=== PATIENT | male | born 1950 | race Caucasian/White ===

== ENCOUNTER 2019-01-06 16:13 | Inpatient (IN) | payer OTHER ==
[~2019-01-06] VITALS: Ht 188 cm; Wt 54.4 kg
[~2019-01-06 16:13] MED LIST: ALBUTEROL2.5 MG/31 INH
[2019-01-06 16:14] VITALS: BP 152/84
[2019-01-06 16:27] LABS: ABSOLUTE NEUTROPHILS 7.7 thou/uL (1.4-8.2); BASOPHILS 0.6 % (0.0-2.0); EOSINOPHILS 0.3 % (0.0-3.0); HEMATOCRIT 37.4 % (42.0-52.0); HEMOGLOBIN 12.3 gm/dL (14.0-18.0); LYMPHOCYTES 9.9 % (24.0-44.0); MCH 31.3 pg (26.0-34.0); MCHC 32.9 g/dL (28.0-37.0); MCV 95.1 fL (80.0-100.0); MONOCYTES 8.5 % (1.0-8.0); PLATELET COUNT 198 thou/uL (150-400); POLYS 80.7 % (36.0-66.0); RBC 3.93 mil/uL (4.50-6.00); RDW 13.6 % (10.5-14.5); WBC 9.5 thou/uL (4.0-11.0)
[2019-01-06 16:34] LABS: CALCIUM 8.4 mg/dL (8.5-10.1); CREATININE 1.1 mg/dL (0.7-1.3); POTASSIUM 4.3 mmol/L (3.5-5.1)
[2019-01-06 16:40] LABS: TOTAL BILIRUBIN 0.7 mg/dL (<0.1-1.0); TOTAL PROTEIN 7.2 g/dL (6.4-8.2)
[2019-01-06 18:04] VITALS: BP 157/65
--- NOTE | 2019-01-06 18:10 | NUR ---
ATTEMPTED TO CALL REPORT NURSE NOT READY
[2019-01-06 18:25] VITALS: BP 148/76
[2019-01-06 18:52] VITALS: BP 175/81
--- NOTE | 2019-01-06 19:43 | NUR ---
REPORT GOTTEN FROM ED AT 1830, PATIENT CAME UP AT 1840. REPORT GIVEN TO NIGHT NURSE JOANNA
[2019-01-07] VITALS (8 sets, daily range): BP systolic 89–149; BP diastolic 58–90
--- NOTE | 2019-01-07 04:05 | NUR ---
ASSUMED CARE OF PATIENT AT 1900. ADMISSION COMPLETED MUCH POSSIBLE. NO ORDERS AT THIS TIME FROM DR BYRNE. DENIES PAIN AT THIS TIME. NPO AFTER MIDNIGHT. WILL CONTINUE TO MONITOR.
--- NOTE | 2019-01-07 07:56 | EKG ---
[place] [address] [address] [facility] [employer] [place] [address] ELECTROCARDIOGRAM REPORT Name: CARLITOS PALMER Room #: 452-P ADM IN M.R.#: [id number] ������������������ Admission: 01/06/19 ������������������ Attend Phys: Cristy Chavis MD Discharge: ������������������ Date of : 46 Report #: [id number] ����������������������������������������������������������������� [id number] THIS REPORT FOR: //name// [facility] ED Test Date: 2019-01-06 Test Time: 17:31:34 Pat Name: CARLITOS PALMER Department: Room: [facility] Gender: M Command And Control Specialist: kf : 1950 Requested By: Minerva Layne Order Number: [id number] MD: Bradford Cordova Measurements Intervals [place] Rate: 87 P: 84 [place]: 200 QRS: 82 QRSD: 115 T: 81 QT: 410 QTc: 494 Interpretive Statements Sinus rhythm LAE, consider biatrial enlargement Compared to ECG 06/01/2014 16:54:53 No significant change was found Electronically Signed On 01-07-2019 7:56:07 CDT by Bradford Cordova [email or web address] ��������������������������������������������� <ELECTRONICALLY SIGNED> ���������������������������������������� By: Bradford Cordova MD, [facility] ��������������������������������������������� 01/07/19 0756 [id number] Bradford Cordova MD, [facility] /EPI
--- NOTE | 2019-01-07 11:29 | HC ---
[facility] [address] [place] [address] CONSULTATION Name: CARLITOS PALMER Room #: 452-P [facility] IN M.R.#: [id number] Admission: 01/06/19 ������������������ Attend Phys: Cristy Chavis MD Discharge: ������������������ Date of : 46 Report #: [id number] THIS REPORT FOR: //name// CC: FAM unknown Cristy Chavis CHIEF COMPLAINT: Right hip femoral neck fracture. HISTORY OF PRESENT ILLNESS: A 68-year-old gentleman who lives at [facility]. He apparently fell yesterday when he was noted upon questioning to have right hip pain. He was determined from x-rays to have a femoral neck fracture, which was displaced. He was subsequently admitted for further management. PAST MEDICAL HISTORY: Significant for renal failure, cellulitis, hypoxemia, malnutrition, venous insufficiency, anemia, hypertension, hyperlipidemia. SOCIAL HISTORY: Negative for tobacco or alcohol use. LABORATORY STUDIES: Note a hemoglobin of 12.3. PHYSICAL EXAMINATION: VITAL SIGNS: Note a temperature of 37.2, pulse is 85, respiratory rate is 18, blood pressure is 152/84. GENERAL: Notes the patient to be alert and awake, in no distress. EXTREMITIES: Examination of the patient's right lower extremity notes it is shortened and externally rotated. He has good capillary refill distally and is neurovascularly intact distally. IMAGING: X-rays of the pelvis and hip note a displaced femoral neck fracture. IMPRESSION: Right hip femoral neck fracture, displaced. PLAN: Would be to proceed with a right hip hemiarthroplasty. The risks, benefits, alternatives, complications were discussed at length. We will proceed in the near future. ��������������������������������������������� <ELECTRONICALLY SIGNED> ���������������������������������������� By: Marcelino Padilla MD ��������������������������������������������� 01/07/19 1129 [id number] 0500 Marcelino Padilla MD /nt
--- NOTE | 2019-01-07 12:05 | NUR ---
Received awake on bed. Pt A+Ox 2-3. On room air. On nothing per orem- informed patient and care team. Pt incontinent of B/B- pt checked frequently and changed as needed. With wound at R elbow- photo taken by previous shift. Vital signs stable. Pt for hip surgery today- consent to be signed since pt is confused, no DPOA and came from facility- OR staff informed and will let doctor know. Fetched by OR staff at 10am.
--- NOTE | 2019-01-08 02:51 | NUR ---
ASSUMED CARE FROM DAY SHIFT PT SITTING UP IN BED EATING EVENING MEAL TOLERATING WELL , PAIN MEDICATION GIVEN AFTER COMPLANINT OF PAIN FORM SURGERY SITE. REINFORCED PLAN OF CARE WITH PATIENT. RESTED WELL THROUGHOUT HOURLY ROUNDS.
[2019-01-08 05:30] VITALS: BP 161/67
[2019-01-08 07:50] VITALS: BP 165/70
--- NOTE | 2019-01-08 09:30 | O ---
[facility] [address] [place] [address] OPERATIVE REPORT Name: ESTELACARLITOS Room #: 452-P [facility] IN M.R.#: [id number] Admission: 01/06/19 ������������������ Attend Phys: Cristy Chavis MD Discharge: ������������������ Date of : 46 Report #: [id number] THIS REPORT FOR: //name// CC: FAM unknown Cristy Chavis DATE OF SERVICE: 01/07/2019 PREOPERATIVE DIAGNOSIS: Right hip femoral neck fracture. POSTOPERATIVE DIAGNOSIS: Right hip femoral neck fracture. PROCEDURE: Right hip hemiarthroplasty. SURGEON: Dr. Marcelino Padilla. ANESTHESIA: General. ESTIMATED BLOOD LOSS: 200 mL. DRAINS: No drains. TOURNIQUETS: No tourniquets. COMPLICATIONS: No complications. DESCRIPTION OF PROCEDURE: The patient was brought to the operating room where he was placed under general anesthesia. Once under adequate general anesthesia, he was placed into a lateral decubitus position on the operative table. The right hip was then prepped and draped in a sterile manner. A 14-cm incision overlying the greater trochanter of the right hip was made. This was dissected sharply down to the tensor fascia, which was incised in line with the incision exposing the posterior aspect of the hip. A posterior approach was then achieved elevating the piriformis along with the joint capsule. Once exposed, any hematoma from the fracture was evacuated and the femoral head was then extracted with a Breaux elevator. This was measured as 53 mm in diameter and the trials confirmed this size to be correct. The femoral neck was cut to length and subsequently reamed and broached to a size 8 cemented stem. Trials were placed and it did appear to be stable; therefore, the wound was irrigated copiously and the femoral canal was prepared for cementation. The cement was placed and the stem was then subsequently placed as well. Once in place, the +0 bipolar head, 53 mm in diameter was then placed. The hip was then reduced. It was very stable. The wound was irrigated copiously and closed with #2 FiberWire in the capsular layer, #5 FiberWire to repair the piriformis back to the fossa. The wound was irrigated once again copiously and closed with #1 Vicryl in the tensor fascial layer and 2-0 Vicryl in the subcutaneous tissues. Gareth were [address] [address] OPERATIVE REPORT Name: CARLITOS PALMER Room #: 452-P [facility] IN ..#: [id number] Admission: 01/06/19 ������������������ Attend Phys: Cristy Chavis MD Discharge: ������������������ Date of : 46 Report #: [id number] used for the skin. The wounds were dressed with Xeroform, 4 x 4s, and a sterile soft compressive dressing was placed. There were no complications from the procedure. The patient tolerated the procedure well and went to the recovery room without incident. ��������������������������������������������� <ELECTRONICALLY SIGNED> ���������������������������������������� By: Marcelino Padilla MD ��������������������������������������������� 01/08/19 0930 1129 1226 Marcelino Padilla MD /amy
--- NOTE | 2019-01-08 10:37 | NUR ---
WOUND CONSULT; ASSESSED THE GROIN AREAS BILATERALLY, IDENTIFIED SKIN CHANGES CONSISTANT WITH A FUNGAL RASH WITH COMMON FUNGAL ODOR. IDENTIFIED A LEFT ELBOW SKIN TEAR WELL. PERIWOUND HAS MILD ERYTHEMA. RECOMMENDATIONS; 1- INTERDRY TO GROIN AREAS BILATERALLY. 2- BOARDER FOAM TO THE LEFT ELBOW. DISCUSSED WITH JUNE
[2019-01-08 11:00] VITALS: BP 116/70
--- NOTE | 2019-01-08 11:09 | NUR ---
Received awake on bed. A+O to self, place and situation. Assisted in ADLs, encouraged to eat and drink. On O2 at 2lpm via nasal cannula- weaning off today. Seen by PT today- tolerated therapy, Pain meds given prior to PT as prescribed. Called [facility] this AM- talked to staff Gilma and asked her re: pt's medications at the facility- as per staff Gilma she mentioned that pt is just on ointment for his rashes there. Pt seen by wound care nurse- orders made for wound care for his groin and R elbow wound. Surgical dressing at R hip C/D/I- no signs of infection noted. Vital signs stable, with mild elevation of BP- rechecked and within his baseline. Pt able to sit out on chair. Falls risk- falls bundle in place. Encouraged pt to talk supplements. With condom catheter in place- pt incontinent. Ice packs in place.
--- NOTE | 2019-01-08 14:08 | NUR ---
PT ADMITTED RELATED TO RT FEMORAL NECK FX S/P HEMIARTHROPLASTY. CM REVIEWED CHART AND SPOKE WITH CARE TEAM. CM MET WITH PT AT BEDSIDE THIS DAY. PT IS A&O X3. CM ROLE INTRODUCED. PT INDICATED [facility] [address] [facility] BUT INDICATED YES TO [facility]. PT INDICATED HE HAD BEEN INDEPDENENT WITH GAIT ELEVATOR CONDUCTOR. CM CALLED AND SPOKE WITH PT'S COUSIN KHLOE AND SHE INDICATED THAT PT RESIDES IN LTC AT [facility] AND HAS FOR THE LAST 3 YEARS. SHE INDICATED PT HAD BEEN INDEPEDNENT WITH GAIT PT. SHE STATED THAT SHE ANTICPATES PT RETURNING BACK TO [facility] ONCE MEDICALLY STABLE. REFERRAL SENT TO [facility] FOR REVIEW FOR POSSIBLE SKILLED UPON DC. CM TO FOLLOW INDICATED WITH DC PLANNING.
--- NOTE | 2019-01-08 14:26 | NUR ---
DISCHARGE PLANNING. PATIENT ANTICIPATED DISCHARGE PLANNED FOR TOMORROW. PATIENT IS AN [facility] CLARE RESIDENT. REFERRAL FAXED TO [facility] FOR POST ACUTE STAY. CALL PLACED TO [facility], SPOKE WITH JIMMY WHO STATES PATIENT WAS ON THEIR SKILLED UNIT PRIOR TO HOSPITAL ADMISSION. JIMMY TRANSFERRED ME TO [facility] FOR PATIENTS POST ACUTE PLACEMENT NEEDS. [facility] TO REVIEW REFERRAL AND DISCUSS PATIENTS PLACEMENT NEEDS WITH HER ADMISSIONS TEAM AND WILL NOTIFY ONCE REFERRAL REVIEW COMPLETE. FOLLOWING TO ASSIST WITH DISCHARGE NEEDS.
[2019-01-08 15:13] VITALS: BP 126/58
[2019-01-08 19:02] VITALS: BP 148/59
[2019-01-09 03:51] VITALS: BP 155/81
--- NOTE | 2019-01-09 03:59 | NUR ---
ASSUMED CARE AROUND 1900. AXOX3. DENIES PAIN. R HIP DRESSING CDI. NO S/S ACTUE DISTRESS NOTED OR REPORTED AT THIS TIME. WILL CONT TO MONITOR FOR ANY CHANGES IN CONDITION.
[2019-01-09 05:49] LABS: HEMATOCRIT 31.3 % (42.0-52.0)
[2019-01-09 06:04] LABS: HEMOGLOBIN 10.2 gm/dL (14.0-18.0)
[2019-01-09 06:11] LABS: CALCIUM 8.1 mg/dL (8.5-10.1); CREATININE 0.8 mg/dL (0.7-1.3); POTASSIUM 4.2 mmol/L (3.5-5.1)
[2019-01-09 07:10] VITALS: BP 150/68
[2019-01-09 14:48] VITALS: BP 123/65
[2019-01-09] MEDS ORDERED: TYLENOL EXTRA500 MG PO (15:17)
[2019-01-09] MEDS ORDERED: NORCO 7.5-3251 EACH PO (15:17)
[2019-01-09] MEDS ORDERED: ENOXAPARIN40 MG/0.1 SUBQ (15:17)
--- NOTE | 2019-01-09 17:00 | NUR ---
Assumed pt care this am, right hip dressing clean, dry and intact. Pt denies any pain just a slight discomfort. Pt was able work with PAT and walk the halls with a walker and gait belt. Pt stayed om his recliner during the latter part of the afternoon, pt was give na bed bath during the am. VS have been stable, POC followed, No signs of distress have been noted. Pt to dc to [facility] report to be called out to Matthew, seed cone picker is slated between 6 to 6:30 pm katherine.
== END 2019-01-09 18:38 | DRG 470 ==
LOC: ER 16:13 → EROBS 17:07 → 4W 17:07
PROVIDERS: Physician Assistant; ADMIT Internal Medicine
PROC: 0SRR0J9 Replacement of Right Hip Joint, Femoral Surface with Synthetic Substitute, Cemented, Open Approach (ICD-10-PCS; principal; 2019-01-07)
DX: S72.001A Fracture of unspecified part of neck of right femur, initial encounter for closed fracture (principal); E46 Unspecified protein-calorie malnutrition; Z68.1 Body mass index [BMI] 19.9 or less, adult; I10 Essential (primary) hypertension; E78.5 Hyperlipidemia, unspecified; D50.0 Iron deficiency anemia secondary to blood loss (chronic); Z91.14 Patient's other noncompliance with medication regimen; W18.39XA Other fall on same level, initial encounter; Y93.89 Activity, other specified; Y92.89 Other specified places as the place of occurrence of the external cause; Y99.8 Other external cause status
CPT/HCPCS: 10040; 50010; 50101; 50382; 50414; 50445; 50939; 51057; 51130; 51225; 51412; 53000; 56525; 56530; 56531; 57117; 62110; 62900; 70005

== ENCOUNTER 2019-01-16 03:50 | Inpatient (IN) | payer OTHER ==
[~2019-01-16] VITALS: Ht 185.4 cm; Wt 63.5 kg
--- NOTE | ~2019-01-16 | EMS ---
[address] [address] EMS Patient Care Report Name: CARLITOS PALMER Room #: REG ADIEL Gorman#: [id number] Admission: 01/16/19 ������������������ Attend Phys: Discharge: ������������������ Date of : 46 Report #: [id number] THIS REPORT FOR: //name// Report Transmitted: 01/16/2019 04:18 EMS Care Summary [place], [place]/[facility] Incident [id number] @ 01/16/2019 03:17 Incident Location [address] [place] [address] 22 [address] Patient CARLITOS PALMER Male, 68 Years 1950 Patient Address [address] [place] [address] [address]ILL[address] [place] [address] Patient History Hypertension,Seizures,Hyperlipidemia,Depression,Anemia,Chronic Pain,Edema,Glaucoma,Cellulitis, Patient Allergies No known allergies, Patient Medications Tylenol, Lovenox, [place], Chief Complaint FEVER Disposition Transported No Lights/Fishs [place] Dispatch Reason Sick Person Transported To [facility] Narrative PT FOUND LYING IN BED. STAFF STATES PT HAS BEEN RUNNING FEVER TONIGHT AND NEEDS TO GO FOR EVALUATION TO R/O INFECTION. TRANSPORTED WITHOUT INCIDENT. [address] [address] EMS Patient Care Report Name: CARLITOS PALMER Room #: REG ADIEL Gorman#: [id number] Admission: 01/16/19 ������������������ Attend Phys: Discharge: ������������������ Date of : 46 Report #: [id number] Initial Vitals @03:32P: 105,R: 18,BP: 151/82,Pain: 4/10,GCS: 15,SpO2: 94,Revised Trauma: 12, Assessments @03:27MENTAL:No Abnormalities,SKIN:Hot,HEENT:Head/Face: No Abnormalities,Eyes: No Abnormalities,Neck/Airway: No Abnormalities,LUNG SOUNDS:ABDOMEN:PELVIS//GI:EXTREMITIES:PULSE:NEURO:No Abnormalities, Impression Fever Procedures @03:27ALS AssessmentResponse: UnchangedSucceeded Timeline 03:15,Call Received 03:15,Dispatch Notified 03:17,Dispatched 03:19,En Route 03:24,On Scene 03:27,At Patient 03:27,ALS Assessment,Response: UnchangedSucceeded, 03:32,BP: 151/82 M,PULSE: 105,RR: 18 R,SPO2: 94 Ox,ETCO2: ,BG: ,PAIN: 4,GCS: 15, 03:34,Depart Scene 03:44,At Destination 03:59,Call Closed Disclaimer v1.1 Copyright 2019 [employer] This EMS Care Summary contains data elements from the applicable legal record (which may be displayed differently). It is designed to provide pertinent information for the following purposes: continuity of care, clinical quality, and state data reporting. The complete legal record is available to ED staff and administrators of the receiving hospital in [employer] Patient Tracker. All data is provided "as is."
[~2019-01-16 03:50] MED LIST changes: +ENOXAPARIN40 MG/0.1 SUBQ; +NORCO 7.5-3251 EACH PO; +TYLENOL EXTRA500 MG PO
[2019-01-16 03:53] VITALS: BP 167/88
[2019-01-16 05:01] LABS: ABSOLUTE NEUTROPHILS 8.3 thou/uL (1.4-8.2); BASOPHILS 0.6 % (0.0-2.0); EOSINOPHILS 1.2 % (0.0-3.0); HEMOGLOBIN 9.8 gm/dL (14.0-18.0); LYMPHOCYTES 16.6 % (24.0-44.0); MCHC 31.7 g/dL (28.0-37.0); MCV 94.7 fL (80.0-100.0); MONOCYTES 7.9 % (1.0-8.0); PLATELET COUNT 435 thou/uL (150-400); POLYS 73.7 % (36.0-66.0); RBC 3.27 mil/uL (4.50-6.00); RDW 13.1 % (10.5-14.5); WBC 11.3 thou/uL (4.0-11.0)
[2019-01-16 05:03] LABS: URINE BILIRUBIN NEGATIVE (Negative); URINE BLOOD TRACE (Negative); URINE CLARITY CLEAR; URINE COLOR YELLOW; URINE GLUCOSE-RANDOM* NEGATIVE (Negative); URINE KETONES NEGATIVE (Negative); URINE LEUKOCYTES-REFLEX NEGATIVE (Negative); URINE NITRITE-REFLEX NEGATIVE (Negative); URINE PROTEIN (DIPSTICK) NEGATIVE (Negative)
[2019-01-16 05:09] LABS: CALCIUM 8.4 mg/dL (8.5-10.1); CREATININE 0.9 mg/dL (0.7-1.3); POTASSIUM 4.7 mmol/L (3.5-5.1)
[2019-01-16] MEDS ORDERED: ENOXAPARIN40 MG/0.1 SUBQ (05:14)
[2019-01-16] MEDS ORDERED: NORCO 5-325 TA1 EAC1 PO (05:16)
--- NOTE | 2019-01-16 07:58 | NUR ---
RADIOLOGY CALLED SAID RADIOLOGIST WILL NOT BE THERE UNTIL 0800 ANDF THEY HAVE A COUPLE CASES BEFORE MR PALMER.
--- NOTE | 2019-01-16 07:58 | NUR ---
ALIDA RN FROM [facility] CALLED TO GET PT STATUS, UPDATED ON POSSIBLE ABCESS DRAIN.
[2019-01-16 13:06] VITALS: BP 166/84
[2019-01-16 13:22] LABS: BF NUCLEATED CELLS 1819; BF RBC 75071
[2019-01-16 13:32] VITALS: BP 152/72
[2019-01-16 14:00] LABS: CLARITY TURBID; COLOR RED; SOURCE RIGHT HIP; TOTAL VOLUME 48 mL
[2019-01-16 14:17] LABS: BF MACROPHAGE 6; BF NEUTROPHILS 86
[2019-01-16 19:26] VITALS: BP 148/72
--- NOTE | 2019-01-16 20:38 | NUR ---
Received pt from the ER. VS stable, regualr diet was requested and tolerqated well. Pt is a post right laeteral hip aspiration and had a recent hip replacement. 450 cc was remioved and sent the lab for culture. Informed Dr. Chavis pt was here. Right leg could not be straightened out. POC followed.
[2019-01-17 05:43] LABS: HEMATOCRIT 30.6 % (42.0-52.0); HEMOGLOBIN 10.1 gm/dL (14.0-18.0); MCH 31.1 pg (26.0-34.0); MCHC 32.9 g/dL (28.0-37.0); MCV 94.5 fL (80.0-100.0); RBC 3.24 mil/uL (4.50-6.00); RDW 13.3 % (10.5-14.5); WBC 10.7 thou/uL (4.0-11.0)
[2019-01-17 08:00] VITALS: BP 196/87
--- NOTE | 2019-01-17 10:36 | NUR ---
DISCHARGE PLANNING. PATIENT ADMITTED FROM [facility]. PLAN IS FOR PATIENT TO RETURN TO [facility]. PATIENT CLINICALS FAXED TO [facility]. CALL PLACED TO JIMMY AND VOICE MAIL LEFT FOR HIM REGARDING PATIENTS DISCHARGE NEEDS AND TO INQUIRE TO WHETHER PATIENT WAS ON [facility] SHELTER UNIT PRIOR TO ADMISSIONS. AWAITING RESPONSE. FOLLOWING TO ASSIST.
[2019-01-17 15:00] VITALS: BP 166/63
--- NOTE | 2019-01-17 15:32 | NUR ---
chart review, pt up sitting on edge of bed leaning to left. per chart and pt been at [facility] for some rehab, " go back if have to"/trisha. intro to ad, transition of care, hh, and snf. " independent before going to rehab, "/trisha. ad called pt contact chato hart- no answer. bedside nurse anticipated pt might dc back to [facility] over weekend.
--- NOTE | 2019-01-17 19:50 | NUR ---
Assumed pt care this am, vs stable, pt remained a febrile. Wound care and dressing change done on the surgical site, pericare given several times through out the day d/t incontinence of both bowel and bladder. Hip precations in place, pt would eat his meals on the side of the bed as requested. POC followed, DC orders were given late in the day called Kalpana from [facility] she was not there but spoke to the night nurse who took care of Joao and was informed that there is no one from admitting that can facilitate the DC and to call tom. chandler to the night nurse.
[2019-01-17 20:35] VITALS: BP 119/73
[2019-01-18] VITALS (9 sets, daily range): BP systolic 128–170; BP diastolic 57–887
--- NOTE | 2019-01-18 07:46 | NUR ---
PROGRESS PT A/O X3 DENIES PAIN OR NEED FOR PAIN MEDS. REPOSITIONED Q2HRS LEGS CONTRACTED, INCONTINENT OF URINE, NO BM THIS SHIFT RIGHT HIP INCISION WELL APPROXIMATED WITH INTACT GAYATHRI. COVERED WITH DRSG TO PROTECT FROM INCONTINENCE. CONTINUE POC.
--- NOTE | 2019-01-18 19:53 | NUR ---
Assumed pt care this am, ptright leg is contracted and pt would grimace with minimal amount of movement but would deny pain and refuse pain medications. Pt has a good appetite and would eat his meals and consume all his supplements. Seen by Dr. Padilla, put on NPO post breakfast and scheduled reduction of the right hip d/t dislocation of recent hip repair. Placed on NPO and consent has been signed. POC followed, pt was taken down to OR at shift change. POC followed, pt remains incontinent. Endorsed to the night nurse.
[2019-01-19] VITALS (7 sets, daily range): BP systolic 110–141; BP diastolic 62–68
--- NOTE | 2019-01-19 08:37 | NUR ---
progress pt went to or for a closed reduction of dislocated right hip at 1930, returned at 2100. vss, abductor pillow in place, offered dinner pt refused, one hydrocodone given in pudding pt slept after. blood noted on sheets during repositioning. incontinent of urine x 1, [place] catheter placed, bed bath given and oral care. wound to right buttock noted similar in appearance to a newly aquired abrasion , picture taken wound care consult ordered per protocol, barrier cream and mepilex applied. pt repositioned q2hrs. neuro checks to right extremity wnl good cap refill, sensation intact. vss continue poc.
--- NOTE | 2019-01-19 09:21 | O ---
[facility] [address] [place] [address] OPERATIVE REPORT Name: CARLITOS PALMER Room #: 445-P [facility] IN M.R.#: [id number] Admission: 01/16/19 ������������������ Attend Phys: Cristy Chavis MD Discharge: ������������������ Date of : 46 Report #: [id number] THIS REPORT FOR: //name// CC: Cristy Chavis DATE OF SERVICE: 01/18/2019 PREOPERATIVE DIAGNOSIS: Dislocated right hip. POSTOPERATIVE DIAGNOSIS: Dislocated right hip, hematoma right hip. PROCEDURE: Right hip closed reduction with aspiration of hematoma. SURGEON: Marcelino Padilla MD. ANESTHESIA: Propofol sedation. ESTIMATED BLOOD LOSS: None. DESCRIPTION OF PROCEDURE: He was brought to the operating room. Once in the operating room, he was provided with anesthesia per the anesthesiologist, which was propofol. Once under propofol sedation, a closed reduction maneuver was performed and achieved fairly quickly with traction countertraction. Once complete, the extremity was well aligned. There was an apparent hematoma in subcutaneous tissues laterally. This was aspirated. There was 150 mL of fluid aspirated from this. Post-reduction films noted excellent reduction of the dislocated hip. The patient was then transferred to the recovery room without incident. ��������������������������������������������� <ELECTRONICALLY SIGNED> ���������������������������������������� By: Marcelino Padilla MD ��������������������������������������������� 01/19/19920 03 30 Marcelino Padilla MD /nt
--- NOTE | 2019-01-19 17:34 | NUR ---
Assumed pt care this am, pt had an abductor pillow in between his legs. Pt repositioned upper body trough out the daty since he would lean towards the left side. [place] catheter was places and produced donell urine. Q2 turns done, pt worked with PT, pt sat at the side of the bed and did some excercises. Pt has been very cooperative with the plan of care though will nos ask for any pain medication though pain is evendent in his facial epressions, pt will deny pain but after a series of discussion pt rated his pain and agreed to taking a pain pill crushed mixed with his pudding. An abrasion on his right butt, barrier cream place and xerofoam, awaiting for would care consult. diet is well tolerated, no nausea or vomiting has been noted, pt is back on his regular diet. POC followed, endorsed to the night nurse.
--- NOTE | 2019-01-20 02:49 | NUR ---
ASSUMED CARE AROUND 1900. AXOX3. R HIP DRESSING DCI. VSS. DENIES PAIN AND DECLINED PAIN MEDICATION. MAINTAINED ON HIP PRECAUTION. EXTERNAL MALE CATHETER DRAINING URINE. NO S/S ACUTE DISTRESS NOTED OR REPORTED AT THIS TIME. WILL CONT TO MONITOR FOR ANY CHANGES [id number].
[2019-01-20 04:15] VITALS: BP 147/68
[2019-01-20 07:30] VITALS: BP 157/73
[2019-01-20 09:00] VITALS: BP 157/73
--- NOTE | 2019-01-20 10:16 | NUR ---
PT A&OX3, VSS, DENIES PAIN. PT REMAINS ON HIP PRECAUTIONS, ABDUCTOR PILLOW IN PLACE. PT IS BEING TURNED IN BED Q2 HOURS. PT DRESSING IS C/D/I. EXTERNAL CATHETER PATENT, NO REDNESS/IRRITATION OBSERVED. KNEE STABALIZER ON ORDER. PT WILL COME TO WORK WITH PATIENT ONCE KNEE STABILIZER IS IN. WILL CONTINUE TO MONITOR.
--- NOTE | 2019-01-20 11:19 | NUR ---
WOUND CONSULT; ASSMENT OF THE PATEIENT REVEAlS A SMALL AREA OF FRICTION TO THE RIGHT BUTTOCK MEASURES APPROX. 0.5 X 0.5 X 0.1. NO S/S OF INFECTION. RECOMMENDATION; APPLY ZGUARD DAILY/PRN RN PRESENT
[2019-01-20 15:05] VITALS: BP 165/87
--- NOTE | 2019-01-20 15:05 | NUR ---
chart copy requested for dcp, 4e going to assist with chart copy.
--- NOTE | 2019-01-20 15:27 | NUR ---
Patient will discharge today from hospital, he will go to [facility], and be picked up today between 5 and 530 pm. Unit notified, family (Michelle) called. DP sent dc paperwork for cc to unit and dc paperwork to [facility], FABRICIO called and let [facility] (spoke with Gama) know that [facility] will garbage pick up worker patient to bring back van, no oxygen.
[2019-01-20 15:30] VITALS: BP 165/8
== END 2019-01-20 17:00 | DRG 919 ==
LOC: ER 03:50 → EROBS 08:14 → 4S 08:14 → 4W 12:19 → 4S 01-17 12:09
PROVIDERS: Emergency Medicine; Emergency Medicine Emergency Medical Services; ADMIT Internal Medicine
PROC: 0S993ZZ Drainage of Right Hip Joint, Percutaneous Approach (ICD-10-PCS; principal; 2019-01-16)
PROC: 0S993ZZ Drainage of Right Hip Joint, Percutaneous Approach (ICD-10-PCS; 2019-01-18)
PROC: 0SS9XZZ Reposition Right Hip Joint, External Approach (ICD-10-PCS; 2019-01-18)
DX: M96.840 Postprocedural hematoma of a musculoskeletal structure following a musculoskeletal system procedure (principal); E43 Unspecified severe protein-calorie malnutrition; T84.020A Dislocation of internal right hip prosthesis, initial encounter; D62 Acute posthemorrhagic anemia; Z68.1 Body mass index [BMI] 19.9 or less, adult; I10 Essential (primary) hypertension; E78.5 Hyperlipidemia, unspecified; K40.90 Unilateral inguinal hernia, without obstruction or gangrene, not specified as recurrent; Z96.641 Presence of right artificial hip joint; Y83.8 Other surgical procedures as the cause of abnormal reaction of the patient, or of later complication, without mention of misadventure at the time of the procedure; Y92.89 Other specified places as the place of occurrence of the external cause; Z79.899 Other long term (current) drug therapy
CPT/HCPCS: 10045; 10102; 50101; 62110; 62850; 70005